=== PATIENT | female | born 1955 | race African-American/Black ===

== ENCOUNTER 2019-03-12 21:26 | Emergency (ER) | payer MEDICARE ==
[~2019-03-12] VITALS: Ht 149.9 cm; Wt 45.4 kg
[~2019-03-12 21:26] MED LIST: no home medications
[2019-03-12] MEDS ORDERED: IV NORMAL SALINE 1000ML BAG 1,000 ML IV ONE (22:00)
[2019-03-12] MEDS ORDERED: TAMSULOSIN 0.4 MG CAP.ER.24H. PO ONE (22:00)
[2019-03-12] MEDS ORDERED: MORPHINE SULFATE 10 MG/ML VIAL. IV ONE (22:00)
--- NOTE | 2019-03-12 22:35 | RAD ---
Exam: CT abdomen and pelvis without contrast INDICATION: Flank pain, history of kidney stones TECHNIQUE: Sequential axial images through the abdomen and pelvis obtained without IV contrast. Sagittal and coronal reformatted images were reconstructed from the axial data and reviewed. Comparisons: None FINDINGS: Heart size is normal. No pericardial effusion. Visualized lung bases are clear. No pleural effusion. Evaluation of solid organs is limited secondary to noncontrast technique. Liver, spleen, pancreas, gallbladder and adrenals are unremarkable. Several bilateral nonobstructing renal calculi are noted. There is no hydronephrosis. 3 mm calculus at the distal left ureter. Bladder is distended and appears thin-walled. Uterus is not enlarged. No abnormal adnexal mass. Large and small bowel are unremarkable. No obstruction. No free intra-abdominal air or fluid. Abdominal aorta has a normal course and caliber. No enlarged abdominal lymph nodes are identified. No suspicious osseous lesions or acute fractures. IMPRESSION: A 3 mm nonobstructing calculus at the distal left ureter. No hydronephrosis. Exposure: One or more of the following in the visualized dose reduction techniques were utilized for this examination: 1. Automated exposure control 2. Adjustment of the MA and/or KV according to patient size 3. Use of iterative of reconstructive technique Electronically signed by: Bhavin Freire MD (03/12/2019 10:32 PM) [facility]
[2019-03-12 22:36] LABS: BASO % 1 % (0-3); EOS # 0.1 x10^3/uL (0.0-0.7); EOS % 1 % (0-3); HEMATOCRIT 37.7 % (36.0-47.0); HEMOGLOBIN 12.7 g/dL (12.0-15.5); LYMPH # 1.6 x10^3/uL (1.0-4.8); LYMPH % 32 % (24-48); MEAN CORPUSCULAR HEMOGLOBIN 30 pg (25-35); MEAN CORPUSCULAR HGB CONC 34 g/dL (31-37); MEAN CORPUSCULAR VOLUME 88 fL (79-100); MONO # 0.6 x10^3/uL (0.0-1.1); MONO % 11 % (0-9); NEUT # 2.7 x10^3/uL (1.8-7.7); NEUT % 55 % (31-73); PLATELET COUNT 214 x10^3/uL (140-400); RED BLOOD COUNT 4.29 x10^6/uL (3.50-5.40); RED CELL DISTRIBUTION WIDTH 13.3 % (11.5-14.5)
[2019-03-12 22:47] LABS: CALCIUM 9.3 mg/dL (8.5-10.1); GFR 67.3; POTASSIUM 3.8 mmol/L (3.5-5.1)
[2019-03-12 22:53] LABS: ALBUMIN 3.4 g/dL (3.4-5.0); ALBUMIN/GLOBULIN RATIO 0.7 (1.0-1.7); TOTAL BILIRUBIN 0.4 mg/dL (0.2-1.0); TOTAL PROTEIN 8.1 g/dL (6.4-8.2)
[2019-03-12 22:58] LABS: BILIRUBIN,URINE NEGATIVE (NEG); CLARITY,URINE CLEAR; COLOR,URINE YELLOW; NITRITE,URINE NEGATIVE (NEG); PROTEIN,URINE NEGATIVE (NEG-TRACE)
[2019-03-12 23:03] LABS: SQUAMOUS EPITHELIAL CELL,UR FEW /LPF
[2019-03-12 23:04] LABS: AMPHETAMINE/METHAMPHETAMINE NEG (NEG); BACTERIA,URINE MODERATE /HPF (0-FEW); BARBITURATES NEG (NEG); BENZODIAZEPINES NEG (NEG); CANNABINOIDS NEG (NEG); COCAINE NEG (NEG); METHADONE NEG (NEG); OPIATES POS (NEG); PHENCYCLIDINE NEG (NEG); RBC,URINE TNTC /HPF (0-2)
[2019-03-12] MEDS ORDERED: ONDANSETRON PF 4 MG/2 ML VIAL. IVP ONE (23:30)
[2019-03-12] MEDS ORDERED: cefTRIAXone IV Push 1 GM VIAL. IVP ONE (23:30)
[2019-03-12] MEDS ORDERED: KETOROLAC 30 MG/ML VIAL. IV ONE (23:30)
[2019-03-12] MEDS ORDERED: HYDROmorphone 2 MG/ML VIAL IV ONE (23:30)
[2019-03-12] MEDS ORDERED: ONDA4TAB7 PO (23:35)
[2019-03-12] MEDS ORDERED: CIPR500T94 PO (23:35)
[2019-03-12] MEDS ORDERED: HYDR-3164 PO (23:36)
[2019-03-12] MEDS ORDERED: TAMS0.4C97 PO (23:36)
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
[2019-03-13 00:20] VITALS: BP 143/67
== END 2019-03-13 00:48 | disposition home or self-care (01) ==
LOC: ER 21:26
DX: N10 Acute pyelonephritis (principal); N20.2 Calculus of kidney with calculus of ureter; I25.2 Old myocardial infarction; Z98.890 Other specified postprocedural states; Z98.51 Tubal ligation status; Z96.0 Presence of urogenital implants
CPT/HCPCS: 36415; 74176; 80053; 80307; 81001; 83690; 85025; 87086; 96374; 96375; 99285; G0480; J0696; J1170; J1885; J2270; J2405; J7030

== ENCOUNTER 2019-06-20 11:04 | Emergency (ER) | payer OTHER, MEDICARE ==
[~2019-06-20] VITALS: Ht 149.9 cm; Wt 45.4 kg
[~2019-06-20 11:04] MED LIST changes: +CIPR500T94 PO; +HYDR-3164 PO; +ONDA4TAB7 PO; +TAMS0.4C97 PO
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
[2019-06-20 12:30] VITALS: BP 124/60
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
[2019-06-20] MEDS ORDERED: CYCL10TA2 PO (13:08)
== END 2019-06-20 13:21 | disposition home or self-care (01) ==
LOC: ER 11:04
DX: S13.4XXA Sprain of ligaments of cervical spine, initial encounter (principal); M54.5 Low back pain; M54.6 Pain in thoracic spine; M47.814 Spondylosis without myelopathy or radiculopathy, thoracic region; R51 Headache; F41.9 Anxiety disorder, unspecified; I25.2 Old myocardial infarction; Z86.19 Personal history of other infectious and parasitic diseases; F43.10 Post-traumatic stress disorder, unspecified; Z98.51 Tubal ligation status; Z98.890 Other specified postprocedural states; V89.2XXA Person injured in unspecified motor-vehicle accident, traffic, initial encounter; Y93.89 Activity, other specified; Y92.89 Other specified places as the place of occurrence of the external cause; Y99.8 Other external cause status
CPT/HCPCS: 70450; 72072; 72100; 72125; 99284

== ENCOUNTER 2021-06-09 12:43 | Emergency (ER) | payer MEDICARE, OTHER ==
[~2021-06-09] VITALS: Ht 149.9 cm; Wt 45.4 kg
[~2021-06-09 12:43] MED LIST changes: +CYCL10TA19 PO
[2021-06-09 12:45] VITALS: BP 189/84
[2021-06-09 13:53] LABS: BASO % 1 % (0-3); EOS % 2 % (0-3); HEMATOCRIT 42.2 % (36.0-47.0); HEMOGLOBIN 13.7 g/dL (12.0-15.5); LYMPH # 1.3 x10^3/uL (1.0-4.8); LYMPH % 47 % (24-48); MEAN CORPUSCULAR HEMOGLOBIN 29 pg (25-35); MEAN CORPUSCULAR HGB CONC 32 g/dL (31-37); MEAN CORPUSCULAR VOLUME 88 fL (79-100); MONO # 0.5 x10^3/uL (0.0-1.1); MONO % 17 % (0-9); NEUT % 34 % (31-73); PLATELET COUNT 218 x10^3/uL (140-400); RED BLOOD COUNT 4.79 x10^6/uL (3.50-5.40); RED CELL DISTRIBUTION WIDTH 13.6 % (11.5-14.5); WHITE BLOOD COUNT 2.8 x10^3/uL (4.0-11.0)
[2021-06-09 13:58] LABS: CALCIUM 8.5 mg/dL (8.5-10.1); GFR 66.7; POTASSIUM 4.3 mmol/L (3.5-5.1)
[2021-06-09] MEDS ORDERED: IOHEXOL 300 MG/ML 100ML VIAL. IV ONE (14:30)
[2021-06-09] MEDS ORDERED: CONTRAST GIVEN. MC PRN (14:30)
--- NOTE | 2021-06-09 15:11 | RAD ---
EXAM: CT Chest, Abdomen and Pelvis with IV contrast CLINICAL HISTORY: left rib pain, luq ttp, fall COMPARISON: 03/12/2019 TECHNIQUE: Helical CT of the chest, abdomen and pelvis was performed following the administration of intravenous contrast. Axial, coronal and sagittal reformatted images were generated. ---PQRS compliance statement - One or more of the following individualized dose reduction techniques were utilized for this study: 1. Automated exposure control 2. Adjustment of the mA and/or kV according to patient size 3. Use of iterative reconstruction technique--- FINDINGS: Chest: Heart is not enlarged. No pericardial effusion. No mediastinal or hilar lymphadenopathy. No axillary lymphadenopathy. No pleural effusion. No pneumothorax. Linear and bandlike opacities lower lobes likely scarring/atelectasis. 4 mm middle lobe lung nodule. Abdomen and Pelvis: Subcentimeter hypodense hepatic foci too small to accurately characterize, possibly cystic. Gallbladd er is normal. No biliary ductal dilatation. Pancreas and adrenal glands are unremarkable. Spleen is n ormal in appearance. Symmetric nephrograms. Nonobstructing renal calculi. Right interpolar renal cyst. No hydronephrosis. No hydroureter. Bladder is unremarkable. Appendix is unremarkable. Moderate colonic stool content is seen. No small or large bowel dilatation. No bowel obstruction. No small or large bowel dilatation. No bowel obstruction. No abdominal pelvic ascites. No abdominal or pelvic lymphadenopathy. Aorta is normal in caliber. Fat-containing ventral abdominal hernia (image 40) with broad base, without inflammatory change. Bones: No aggressive osseous lesion is seen. Degenerative changes of spine are noted. IMPRESSION: 1. Nonobstructing renal calculi. No ureteral or bladder calculi. 2. No bowel obstruction. 3. Linear opacities lung bases likely scarring/atelectasis. 4. 4 mm middle lobe lung nodule. Per Fleischner Society guidelines for incidentally found solid nodu les measuring less than 6 mm, no follow-up is necessary if patient is considered at low risk for lung cancer. If patient is considered to be at high risk, such as with history of smoking, then CT follow -up in about 12 months can be considered. 5. Electronically signed by: Lars Cain MD (06/09/2021 3:08 PM) [facility]
[2021-06-09 15:53] LABS: BILIRUBIN,URINE NEGATIVE (NEG); CLARITY,URINE CLEAR; COLOR,URINE YELLOW; NITRITE,URINE NEGATIVE (NEG); PROTEIN,URINE NEGATIVE (NEG-TRACE); UROBILINOGEN,URINE 0.2 mg/dL (0.2 mg/dL)
[2021-06-09] MEDS ORDERED: ACETAMINOPHEN 500 MG TABLET PO ONE (16:00)
[2021-06-09] MEDS ORDERED: KETOROLAC 30 MG/ML VIAL. IVP ONE (16:00)
[2021-06-09] MEDS ORDERED: LIDOCAINE (700MG/PATCH) PATCH. TD ONE (16:00)
--- NOTE | 2021-06-09 16:05 | PHYS DOC ---
Past Medical History Past Medical History: Anxiety, Ectopic , Kidney Stone, SC, Other Additional Past Medical Histor: osteoporosis, ruptured esophagus, MRSA Past Surgical History: Other Additional Past Surgical Histo: esophagus 2004 Smoking Status: Never Smoker Alcohol Use: None Drug Use: None General Adult EDM: Chief Complaint: MECHANICAL FALL HPI: HPI: Patient is a 66 year old female who presents with left-sided rib pain after a fall. She tripped on beads in a parking lot several days ago and fell onto her left side. Has had immediate pain that has not been relenting. Worse with inspiration. Radiates towards the thoracic and lumbar back. Pain is worse over the lower ribs on the left. Denies head strike, LOC, confusion, nausea/vomiting, or any headaches since. No blood thinning medications. Denies neck pain, upper extremity paresthesias, or weakness. Has had some pain towards her left hip, but states that she has been able to walk on it without difficulty. Review of Systems: Review of Systems: Constitutional: Denies fever or chills. [] Eyes: Denies change in visual acuity. [] HENT: Denies nasal congestion or sore throat. [] Respiratory: Denies cough or shortness of breath. [] Cardiovascular: Denies chest pain or edema. [] GI: Denies abdominal pain, nausea, vomiting, bloody stools or diarrhea. [] : Denies dysuria. [] Musculoskeletal: Reports left-sided chest wall pain. Integument: Denies rash. [] Neurologic: Denies headache, focal weakness or sensory changes. [] Endocrine: Denies polyuria or polydipsia. [] Lymphatic: Denies swollen glands. [] Psychiatric: Denies depression or anxiety. [] Heart Score: C/O Chest Pain: No Current Medications: Current Medications Medications (Trade) Dose Ordered Sig/Franck Start Time Stop Time Status Last Admin Dose Admin Info (CONTRAST GIVEN -- Rx MONITORING) 1 each PRN DAILY PRN 06/09/21 14:30 06/11/21 14:29 Iohexol (Omnipaque 300 Mg/ml) 75 ml 1X ONCE 06/09/21 14:30 06/09/21 14:31 DC 06/09/21 14:31 75 ML Ketorolac Tromethamine (Toradol 30mg Vial) 15 mg 1X ONCE 06/09/21 16:00 06/09/21 16:01 UNV Allergies: Allergies: Allergies Coded Allergies Type Severity Reaction Last Updated Verified No Known Drug Allergies 09/06/14 No Physical Exam: PE: Constitutional: Well developed, well nourished, no acute distress, non-toxic appearance. [] HENT: Normocephalic, atraumatic, Eyes: PERRLA Neck: Normal range of motion, no tenderness, supple, no stridor. [] Cardiovascular:Heart rate regular rhythm, no murmur [] Lungs & Thorax: Left lower ribs tenderness to palpation laterally and posteriorly. Breath sounds clear bilaterally. Abdomen: Mild left upper quadrant tenderness to palpation, no rebound, or rigidity. Remainder of abdominal exam is nontender. Skin: Warm, dry, no erythema, no rash. [] Back: Thoracic and upper lumbar tenderness to palpation in the midline. Extremities: Pelvis stable, no deformities, no focal tenderness. Neurologic: Alert and oriented X 3, normal motor function, normal sensory function, no focal deficits noted. [] Psychologic: Affect normal, judgement normal, mood normal. [] Current Patient Data: Labs: Laboratory Tests Test 06/09/21 13:35 White Blood Count 2.8 x10^3/uL (4.0-11.0) L Red Blood Count 4.79 x10^6/uL (3.50-5.40) Hemoglobin 13.7 g/dL (12.0-15.5) Hematocrit 42.2 % (36.0-47.0) Mean Corpuscular Volume 88 fL (79-100) Mean Corpuscular Hemoglobin 29 pg (25-35) Mean Corpuscular Hemoglobin Concent 32 g/dL (31-37) Red Cell Distribution Width 13.6 % (11.5-14.5) Platelet Count 218 x10^3/uL (140-400) Neutrophils (%) (Auto) 34 % (31-73) Lymphocytes (%) (Auto) 47 % (24-48) Monocytes (%) (Auto) 17 % (0-9) H Eosinophils (%) (Auto) 2 % (0-3) Basophils (%) (Auto) 1 % (0-3) Neutrophils # (Auto) 1.0 x10^3/uL (1.8-7.7) L Lymphocytes # (Auto) 1.3 x10^3/uL (1.0-4.8) Monocytes # (Auto) 0.5 x10^3/uL (0.0-1.1) Eosinophils # (Auto) 0.0 x10^3/uL (0.0-0.7) Basophils # (Auto) 0.0 x10^3/uL (0.0-0.2) Sodium Level 141 mmol/L (136-145) Potassium Level 4.3 mmol/L (3.5-5.1) Chloride Level 105 mmol/L (98-107) Carbon Dioxide Level 28 mmol/L (21-32) Anion Gap 8 (6-14) Blood Urea Nitrogen 13 mg/dL (7-20) Creatinine 1.0 mg/dL (0.6-1.0) Estimated GFR (Cockcroft-Gault) 66.7 Glucose Level 84 mg/dL (70-99) Calcium Level 8.5 mg/dL (8.5-10.1) Laboratory Tests 06/09/21 13:35 Laboratory Tests 06/09/21 13:35 Vital Signs: Vital Signs Date Time Temp Pulse Resp B/P (MAP) Pulse Ox O2 Delivery O2 Flow Rate FiO2 06/09/21 12:45 97.5 77 18 189/84 (119) 100 Room Air 97.5 EKG: EKG: [] Radiology/Procedures: Radiology/Procedures: [] Impression: [facility] [id number] [facility] [place] [address] IMAGING REPORT Signed PATIENT: ZARINA MOODY VACCOUNT: [id number] : 1955 LOCATION: ER AGE: 66 SEX: F EXAM STATUS: REG ER ORD. PHYSICIAN: AYUSH GORDILLO MD REASON: left rib pain, luq ttp, fall PROCEDURE: CT CHEST ABD PELVIS W/CONTRAST EXAM: CT Chest, Abdomen and Pelvis with IV contrast CLINICAL HISTORY: left rib pain, luq ttp, fall COMPARISON: 03/12/2019 TECHNIQUE: Helical CT of the chest, abdomen and pelvis was performed following the administration of intravenous contrast. Axial, coronal and sagittal reformatted images were generated. ---PQRS compliance statement - One or more of the following individualized dose reduction techniques were utilized for this study: 1. Automated exposure control 2. Adjustment of the mA and/or kV according to patient size 3. Use of iterative reconstruction technique--- FINDINGS: Chest: Heart is not enlarged. No pericardial effusion. No mediastinal or hilar lymphadenopathy. No axillary lymphadenopathy. No pleural effusion. No pneumothorax. Linear and bandlike opacities lower lobes likely scarring/atelectasis. 4 mm middle lobe lung nodule. Abdomen and Pelvis: Subcentimeter hypodense hepatic foci too small to accurately characterize, possibly cystic. Gallbladder is normal. No biliary ductal dilatation. Pancreas and adrenal glands are unremarkable. Spleen is normal in appearance. Symmetric nephrograms. Nonobstructing renal calculi. Right interpolar renal cyst. No hydronephrosis. No hydroureter. Bladder is unremarkable. Appendix is unremarkable. Moderate colonic stool content is seen. No small or large bowel dilatation. No bowel obstruction. No small or large bowel dilatation. No bowel obstruction. No abdominal pelvic ascites. No abdominal or pelvic lymphadenopathy. Aorta is normal in caliber. Fat-containing ventral abdominal hernia (image 40) with broad base, without inflammatory change. Bones: No aggressive osseous lesion is seen. Degenerative changes of spine are noted. IMPRESSION: 1. Nonobstructing renal calculi. No ureteral or bladder calculi. 2. No bowel obstruction. 3. Linear opacities lung bases likely scarring/atelectasis. 4. 4 mm middle lobe lung nodule. Per Fleischner Society guidelines for incidentally found solid nodules measuring less than 6 mm, no follow-up is necessary if patient is considered at low risk for lung cancer. If patient is considered to be at high risk, such as with history of smoking, then CT follow- up in about 12 months can be considered. 5. Electronically signed by: Lars Castellanos MD (06/09/2021 3:08 PM) [facility] DICTATED and SIGNED BY: LARS CASTELLANOS MD DATE: 06/09/21 [id number] 0 Course & Med Decision Making: Course & Med Decision Making Pertinent Labs and Imaging studies reviewed. (See chart for details) Patient is a 66-year-old female who presents with left-sided rib and back pain after mechanical fall. She was tender in thoracic and lumbar spine in the midline, and had left-sided rib tenderness to palpation CT chest/abdomen/pelvis did not show any acute fracture or traumatic injury. Incidental pulmonary nodule was seen. Lab work largely unremarkable. Discussed pain control with Tylenol, ibuprofen, lidocaine patches. Briefly discussed hydrocodone, but patient wishes to avoid any narcotic medications. Dragon Disclaimer: Blanca Disclaimer: This electronic medical record was generated, in whole or in part, using a voice recognition dictation system. Departure Departure Impression: Primary Impression: Chest wall contusion Additional Impressions: Back pain Fall Lung nodule Hematuria Disposition: HOME / SELF CARE / HOMELESS Condition: STABLE Referrals: DAVID BURCIAGA MD (PCP) Patient Instructions: Chest Contusion Additional Instructions: For pain tylenol and ibuprofen are best used on a schedule. Please alternate between the two. -Tylenol 1000 mg every 6 hours (do not exceed 4000 mg in one day) -Ibuprofen 400 mg every 6 hours. Take with food. Do not take for more than [address] lidocaine patch once a day on the area that is most painful. These can be found [id number] if you find that they help. If you develop fever/chills, shortness of breath, or worsening chest discomfort that cannot be managed at home please return to the emergency department for reevaluation. Otherwise, please follow-up with your PCP to ensure that your symptoms are improving. Please use your incentive spirometer twice an hour while awake. Use it for 10 deep breaths in a row. Please get up and move frequently with walking. -- Your work-up also showed some blood in your urine, but no signs of infection. There is nothing unusual on your CT scan to explain this, so you will need to follow-up with your primary care doctor to search for further causes of blood in your urine. The CT scan did show a 4 mm lung nodule as well, but given that you have never smoked this is a low risk of lung nodule, and does not necessarily need a follow-up CT. Please discuss this with your primary care doctor. AYUSH GORDILLO MD Jun 09, 2021 16:05
[2021-06-09 16:07] LABS: HYALINE CASTS, URINE FEW /HPF
[2021-06-09 16:08] LABS: RBC,URINE >40 /HPF (0-2)
[2021-06-09 16:09] LABS: BACTERIA,URINE 0 /HPF (0-FEW); WBC,URINE RARE /HPF (0-4)
== END 2021-06-09 17:12 | disposition home or self-care (01) ==
LOC: ER 12:43
DX: S20.212A Contusion of left front wall of thorax, initial encounter (principal); R10.12 Left upper quadrant pain; I25.2 Old myocardial infarction; F41.9 Anxiety disorder, unspecified; W01.0XXA Fall on same level from slipping, tripping and stumbling without subsequent striking against object, initial encounter; Y93.89 Activity, other specified; Y92.89 Other specified places as the place of occurrence of the external cause; Y99.8 Other external cause status
CPT/HCPCS: 36415; 71260; 74177; 80048; 81001; 85025; 96374; 99284; J1885; Q9967